=== PATIENT | male | born 1990 | race Caucasian/White ===

== ENCOUNTER 2016-06-06 20:16 | Emergency (ER) | payer OTHER ==
[~2016-06-06] VITALS: Ht 188 cm; Wt 153.0 kg
[2016-06-06 20:17] VITALS: Ht 188 cm; Wt 153.0 kg
[2016-06-06] MEDS ORDERED: IBUPROFEN 600 MG TAB PO ONE (21:00)
[2016-06-06] MEDS ORDERED: ACETAMINOPHEN 325 MG TAB PO ONE (21:00)
--- NOTE | 2016-06-06 21:10 | ERD ---
ER Documentation Chief Complaint Date/Time DATE: 06/06/16 TIME: 21:[address] for 2 days with increasing fever HPI 25-year-old male presents to emergency department for complaints of sore throat and fever for 2 days. Patient is complaining of sore throat, burning pain, 6/ 10 scale, worse upon swallowing accompanied with fever. Patient took Tylenol at home to help with symptoms which help with some of his pain and fever. Patient denies any stridor or shortness of breath. Patient denies any sick contacts. Patient denies any cough, runny nose. Patient denies any shortness of breath. ROS All systems reviewed and are negative except as per history of present illness. Medications Home Meds Active Scripts Ibuprofen* (Motrin*) 600 Mg Tab, 600 MG PO Q6H Y for PAIN AND OR ELEVATED TEMP, #30 TAB Prov:JACQUELINE FITZPATRICK NP 06/06/16 Penicillin V Potassium* (Penicillin V K*) 500 Mg Tab, 500 MG PO QID for 10 Days , TAB Prov:JACQUELINE FITZPATRICK PSYCHIATRIC NURSE 06/06/16 Reported Medications [none] Unknown Strength No Conflict Check 06/06/16 Allergies Allergies: Coded Allergies: No Known Allergy (Unverified , 06/06/16) PMhx/Soc Medical and Surgical Hx: pt denies Medical Hx, pt denies Surgical Hx History of Surgery: No Anesthesia Reaction: No Hx Neurological Disorder: No Hx Respiratory Disorders: No Hx Cardiac Disorders: No Hx Psychiatric Problems: No Hx Miscellaneous Medical Probl: No Hx Alcohol Use: No Hx Substance Use: No Hx Tobacco Use: No Smoking Status: Never smoker FmHx Family History: No coronary disease, No diabetes, No other Physical Exam Vitals Vital Signs Date Time Temp Pulse Resp B/P Pulse Ox O2 Delivery O2 Flow Rate FiO2 06/06/16 20:17 101.4 116 18 132/66 95 Physical Exam GENERAL: The patient is well developed and appropriate for usual state of health, in no apparent distress. HEENT: Atraumatic. Ears: Normal tympanic membrane, no erythema or bulging. No ear canal swelling. No ear discharge. Nose: normal nasal turbinates, no erythema or swelling. Normal nasal discharge. Throat: oropharynx erythematous with +1 tonsillar swelling and tonsillar exudates noted in bilateral tonsils. No lymphadenopathy. CHEST: Clear to auscultation bilaterally. There are no rales, wheezes or rhonchi. HEART: Regular rate and rhythm. No murmurs, clicks, rubs or gallops. No S3 or S4. ABDOMEN: Soft, nontender and nondistended. Good bowel sounds. No rebound or guarding. No gross peritonitis. No gross organomegaly or masses. No Alba sign or McBurney point tenderness. BACK: No midline or flank tenderness. EXTREMITIES: Equal pulses bilaterally. There is no peripheral clubbing, cyanosis or edema. No focal swelling or erythema. Full range of motion. Grossly neurovascularly intact. NEURO: Alert and oriented. Cranial nerves 2-12 intact. Motor strength in all 4 extremities with 5/5 strength. Sensation grossly intact. Normal speech and gait. SKIN: There is no apparent rash or petechia. The skin is warm and dry. HEMATOLOGIC AND LYMPHATIC: There is no evidence of excessive bruising or lymphedema. No gross cervical, axillary, or inguinal lymphadenopathy. Results 24 hrs Current Medications Medications (Trade) Dose Ordered Sig/[place] Route PRN Reason Start Time Stop Time Status Last Admin Dose Admin Ibuprofen (Motrin) 600 mg ONCE ONCE PO 06/06/16 21:00 06/06/16 21:01 DC 06/06/16 21:08 Acetaminophen (Tylenol Tab) 650 mg ONCE ONCE PO 06/06/16 21:00 06/06/16 21:01 DC 06/06/16 21:08 Patient was given medicines for fever control here in the emergency department. After treatment, patient temperature improved and lower. Patient appears well and is hemodynamically stable. Procedures/MDM Medical decision making: Patient symptoms most likely consistent with acute bacterial pharyngitis, most likely strep throat. No symptoms of epiglottitis, laryngitis, and no symptoms of peritonsillar abscess at this time, no symptoms of oral airway obstruction noted. No symptoms of sepsis at this time, patient appears well and is hemodynamically stable. Prescription was given for Pen-VK, ibuprofen, is advised to do salt water gargles, rest, drink a lot of water, patient was advised to follow-up with primary care doctor in 2-3 days, return to emergency department for any worsening symptoms. Departure Diagnosis: Primary Impression: Acute bacterial pharyngitis Condition: Stable Patient Instructions: Pharyngitis, Strep (Presumed) Additional Instructions: Prescription was given for Pen-VK, ibuprofen, is advised to do salt water gargles, rest, drink a lot of water, patient was advised to follow-up with primary care doctor in 2-3 days, return to emergency department for any worsening symptoms. JACQUELINE FITZPATRICK NP Jun 06, 2016 21:10
[2016-06-06] MEDS ORDERED: IBUP-1542 PO (21:11)
[2016-06-06] MEDS ORDERED: PEN500 PO (21:11)
== END 2016-06-06 21:25 | disposition home or self-care (01) ==
LOC: FTE 20:16
DX: J02.9 Acute pharyngitis, unspecified (principal)
CPT/HCPCS: Z7610 ×2; 99283

== ENCOUNTER 2016-06-10 19:36 | Emergency (ER) | payer SELFPAY ==
[~2016-06-10 19:36] MED LIST: IBUP-1542 PO; PEN500 PO
== END 2016-06-10 22:32 | disposition left against medical advice (07) ==
LOC: E/R 19:36
DX: Z53.21 Procedure and treatment not carried out due to patient leaving prior to being seen by health care provider (principal)